=== PATIENT | female | born 1985 | race Two or more races ===

== ENCOUNTER 2016-07-25 13:31 | Emergency (ER) | payer MEDICAID ==
--- NOTE | 2016-07-25 13:45 | ED Physician Chart ---
History of Present Illness - General Stated Complaint: HEADACHE SINCE YESTERDAY Time Seen by Provider: 07/25/16 13:46 Source: Patient, EMS - History of Present Illness Initial Comments: HPI: This 30 year old female had gradual onset of a headache, isolated to the area of the forehead. She rates the severity of the headache as a 3/10 and the character as sharp. The pain come and go and the patient can identify any worsening or reliving factors. She says the headache kept her from sleeping last night. She was at her daughters school this afternoon with her head restinf on her folded arms as she was sitting on a bench . A teach was unable to awaken her and 911 was called. The patient was unresponsive upon arrival of EMS. She regained consciousness during the trip to the hospital. She denied any recent head trauma. She has not photophobia. NO recent fever or chills. NO diaphoresis. NO blurred vision or double vision. NO neck pain or stiff neck. NO nausea or vomiting. NO history of alcohol or drug ingestion. The patient DENIES HAVING EVER HAD A SIMILAR HEADACHE. NO family history of migraine headaches or ceberal bleeds. Allergies/Adverse Reactions: Allergies No Known Allergies Allergy (Verified 07/25/16 13:44) Home Medications: Ambulatory Orders Hydrocodone/APAP 5mg/325mg [Curlew 5mg/325mg] 1 tab PO Q6H PRN #0 tab 07/25/16 Ibuprofen 600 mg PO Q6HR PRN #0 tablet 07/25/16 Past History - Past Medical History Surgical History: No surgical history (Non-smoker and denied use of alcohol. Denies illicit drug use.) Family Medical History - Family Member Mother History Unknown: Yes Ethnicity: (No family history of migraine headaches or cerebral aneurysms. No history of intracranial bleeds.) Review of Systems - Review of Systems Eyes (ROS): Reports: No Symptoms Reported ( Has nasal congestion.) Respiratory: Reports: No Symptoms Reported Cardiology: Reports: No symptoms reported Gastrointestinal/Abdominal: Reports: Abdominal pain ( The patient has mild pain in the epigastric region. The pain does not radiate to the back.), Other Genitourinary: Reports: No Symptoms Reported Musculoskeletal: Reports: No Symptoms Reported Skin: Reports: No Symptoms Reported Neurological: Reports: No Symptoms Reported, See HPI All Other Systems: Reviewed and Negative Physical Exam - Physical Exam General Appearance: WD/WN, mild distress Eyes, Ears, Nose, Throat Exam: PERRL/EOMI, normal ENT inspection, TMs normal, pharynx normal, other ( Funds scopic examination showed no retinal hemorrhages or exudates and sharp disk margins bilaterally.) Neck: non-tender, full range of motion, supple, normal inspection, trachea midline ( The neck is supple and without lymphadenopathy. No C-spine tenderness. ) Cardiovascular/Chest: normal peripheral pulses, regular rate, rhythm, no edema, no gallop, no JVD, no murmur Respiratory: chest non-tender, lungs clear, normal breath sounds, no respiratory distress, no accessory muscle use Gastrointestinal/Abdominal: Normal bowel sounds, Soft, No organomegaly, No pulsatile mass, Other ( There was mild epigastric tenderness to palpation with no associated rebound regarding.) Back Exam: normal inspection, no CVA tenderness, no vertebral tenderness Extremity: normal range of motion, non-tender, normal inspection, no pedal edema , no calf tenderness, normal capillary refill Mental Status: alert, oriented x 3, depressed 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 No facial asymmetry. No EOM Palsy) Coordination/Gait: normal gait, negative Romberg's sign ( no pronator drift. Fingernails testing and [place] testing were both normal. normal alternating hand movements. Gait is steady. Negative hombre test.) Motor/Sensory: no motor deficit Course - Course Orders, Labs, Meds: Nathan did write it down on here let me look: this 30-year-old female presents with a somewhat unusual history of headache in the frontal region. It started gradually at about 5 PM the evening before. The symptoms wax and wane and there are no precipitating or relieving factors. The patient never had a similar headache. On physical examination the neurologic exam was completely normal. Due to the patient's history of no prior similar headaches a CT scan was obtained and was negative for any evidence of subarachnoid hemorrhage. Patient was discharged with a prescription for Curlew 5/325, number 10 to be taken one every six hours as needed for headache. She was given the usual precautions regarding mixing it with alcohol and abstaining from driving in activities requiring alertness for at least six hours after taking it. Patient was discharged with instructions to follow up with her primary care physician. She does not know the primary care physicians name but states that she does have one. She was further buys to return to the emergency department should she have any new onset of neurologic symptoms. MDM: DDX (ACUTE HEADACHE) NOT Subarachnoid hemorrhage based on gradual onset, supple neck, and negative CT head. NOT Traumatic IC Bleed based on patient's neg history for trauma and negative CT head. NOT meningitis based on no fever and supple neck and no rashes or petechiae. NOT temporal arteritis based on patients age. NOT glaucoma based on history and exam. NOT Vertebral artery dissection based on the patient's history and physical examination. NOT Frontal sinusitis based on neg CT scan and no tenderness over frontal sinuses. Departure - Departure Disposition: PT DISCHARGED HOME Condition: Improved Instructions: Tension Headache Referrals: Addie Alanis [Other] Home Medications: Ambulatory Orders Hydrocodone/APAP 5mg/325mg [Curlew 5mg/325mg] 1 tab PO Q6H PRN #0 tab 07/25/16 Ibuprofen 600 mg PO Q6HR PRN #0 tablet 07/25/16 Prescriptions: Ibuprofen 600 mg PO Q6HR PRN #0 tablet PRN Reason: Pain (Mild) Hydrocodone/APAP 5mg/325mg [[place] 5mg/325mg] 1 tab PO Q6H PRN #0 tab PRN Reason: Pain (Severe) ED Discharge Plan - Patient Disposition Admit/Discharge/Transfer: PT DISCHARGED HOME Condition at Disposition: Improved Prescriptions: Ibuprofen 600 mg PO Q6HR PRN #0 tablet PRN Reason: Pain (Mild) Hydrocodone/APAP 5mg/325mg [[place]lew 5mg/325mg] 1 tab PO Q6H PRN #0 tab PRN Reason: Pain (Severe) Instructions: Tension Headache Accepting Physician: Addie Alanis [Other]
[2016-07-25] MEDS ORDERED: Hydrocodone/APAP 5mg/325mg Tab PO ONE (14:30)
[2016-07-25] MEDS ORDERED: Hydrocodone/APAP 5mg/325mg Tab ONE (14:32)
[2016-07-25 14:42] LABS: % BASOPHILS 1.8 % (0.0-2.0); % EOSINOPHILS 1.5 % (0.0-5.0); % MONOCYTES 4.3 % (2.0-10.0); % NEUTROPHILS 69.4 % (40.0-80.0); HEMATOCRIT 39.4 % (35.0-45.0); HEMOGLOBIN 13.6 gm/dL (11.7-15.5); MEAN CELL VOLUME 88.2 fl (81-100); MEAN CORPUSCULAR HEMOGLOBIN 30.5 pg (27.0-31.0); MEAN CORPUSCULAR HGB CONC 34.6 pg (28.0-36.0); MEAN PLATELET VOLUME 8.2 fl; NEUTROPHILE ABSOLUTE 5.8 Th/cmm (1.8-8.0); PLATELET COUNT 247 Th/cmm (150-400); RED BLOOD COUNT 4.47 Mil/cmm (3.80-5.10); WHITE BLOOD COUNT 8.4 Th/cmm (4.8-10.8)
[2016-07-25 14:59] LABS: ANION GAP 12.8 (7.0-16.0); BUN - UREA NITROGEN 10 mg/dL (7-25); BUN/CREATININE RATIO 16.7; CALCIUM SERUM 9.7 mg/dL (8.6-10.3); CARBON DIOXIDE 23.1 mEq/L (21.0-31.0); CHLORIDE 104 mEq/L (98-107); CREATININE - SERUM 0.6 mg/dL (0.6-1.2); GLUCOSE 94 mg/dL (70-105); POTASSIUM SERUM 3.9 mEq/L (3.5-5.1); SODIUM SERUM 136 mEq/L (136-145)
[2016-07-25 15:13] LABS: URINE BILIRUBIN NEGATIVE (NEGATIVE); URINE BLOOD SMALL (NEGATIVE); URINE COLOR YELLOW; URINE GLUCOSE (UA) NEGATIVE (NEGATIVE); URINE KETONE NEGATIVE (NEGATIVE)
[2016-07-25 15:14] LABS: URINE PROTEIN NEGATIVE (NEGATIVE); URINE UROBILINOGEN 0.2 E.U./dL (0.2 - 1.0)
[2016-07-25 15:15] LABS: URINE BACTERIA NONE SEEN /hpf (NONE SEEN); URINE EPITHELIAL CELLS FEW /lpf (FEW)
--- NOTE | 2016-07-25 16:02 | Diagnostic Imaging Report ---
Head CT without intravenous contrast Indication: Headache and loss of consciousness Comparison: None Technique: Axial images were obtained from the vertex to the skull base without IV contrast. Coronal reconstructions were made. Total DLP: 507, CTDI32 FINDINGS: Images of the brain obtained without contrast demonstrate no acute hemorrhage. No mass lesions identified. The ventricles and basal cisterns are patent. The culp-white matter differentiation is preserved. There is no mass effect or midline shift. No skull fractures identified. No soft tissue swelling. The paranasal sinuses are clear. IMPRESSION: No acute intracranial abnormality.
== END 2016-07-25 16:50 | disposition home or self-care (01) ==
LOC: ER 13:31
DX: G44.209 Tension-type headache, unspecified, not intractable (principal)
CPT/HCPCS: 36415-UA; 70450-TC; 80048-TC; 81001-TC; 81025-TC; 82948-90; 85025-TC

== ENCOUNTER 2016-09-29 10:16 | Emergency (ER) | payer MEDICAID ==
[2016-09-29] MEDS ORDERED: Naloxone 0.4 mg/mL 1mL Vial IV ONE (10:22)
[2016-09-29] MEDS ORDERED: Naloxone 0.4 mg/mL 1mL Vial ONE (10:24)
--- NOTE | 2016-09-29 10:52 | ED Physician Chart ---
Chief Complaint/HPI - Patient Information Date Seen:: 09/29/16 Time Seen:: 10:40 Chief Complaint:: ALOC History of Present Illness:: THIS IS A 30 YO GER[place] FEMALE BIB HER FAMILY UNRESPONSIVE THIS AM AND HAS BEEN HERE [facility]IVE[place] BEFORE BIB THE EMS BACK IN JUL 2016. SHE WAS UNABLE TO GIVE A HISTORY OR REVIEW OF SYSTEMS. HER IS WITH HER BUT SPEAKS ONLY GERMAN. AFTER SHE WAS GIVEN NARCAN IV PUSH SHE WAS ABLE TO GIVE A NEGATIVE HISTORY OF SEIZURES, HEART PROBLEMS AND DIABETES. Allergies:: Allergies Allergy/AdvReac Type Severity Reaction Status Date / Time No Known Allergies Allergy Verified 07/25/16 13:44 Vitals:: Vital Signs - 8 hr 09/29/16 10:38 Temp 99.4 F HR 91 RR 17 BP 137/89 O2 Sat % 99 Historian:: Patient, Family Member, Medical Records Review:: Nurse's Note Reviewed Review of Systems - Review of Systems General/Constitutional: No fever, No chills, No weight loss, No weakness, No diaphoresis, No edema, No loss of appetite Skin: No skin lesions, No rash, No bruising Head: No headache, No light-headedness Eyes: No loss of vision, No pain, No diplopia ENT: No earache, No nasal drainage, No sore throat, No tinnitus Neck: No neck pain, No swelling, No thyromegaly, No stiffness, No mass noted Cardio Vascular: No chest pain, No palpitations, No PND, No orthopnea, No edema Pulmonary: No SOB, No cough, No sputum, No wheezing GI: No nausea, No vomiting, No diarrhea, No pain, No melena, No hematochezia, No constipation, No hematemesis G/U: No dysuria, No frequency, No hematuria Musculoskeletal: No bone or joint pain, No back pain, No muscle pain Endocrine: No polyuria, No polydipsia Psychiatric: No prior psych history, No depression, No anxiety, No suicidal ideation Hematopoietic: No bruising, No lymphadenopathy Allergic/Immuno: No urticaria, No angioedema Neurological: Syncope, No focal symptoms, No weakness, No paresthesia, No headache, No seizure, No dizziness, No confusion, No vertigo Past Medical History - Past Medical History Obtainable: Yes Past Medical History: Other (ALOC TIMES ONE) Family History: None Social History: Non Smoker, No Alcohol, No Drug Use, Surgical History: None Psychiatricy History: None Medication: Reviewed Family Medical History - Family Member Mother History Unknown: Yes Ethnicity: (No family history of migraine headaches or cerebral aneurysms. No history of intracranial bleeds.) Physical Exam - Physical Examination General/Constitutional: Awake, Well-developed, well-nourished, Alert, No distress, GCS 15, Non-toxic appearing, Ambulatory Other Gen/Cons comments:: ALTERED MENTAL STATUS AND NOT RESPONDING TO VERBAL STIMULATION. Head: Atraumatic Eyes: Lids, conjuctiva normal, PERRL, EOMI Skin: Nl inspection, No rash, No skin lesions, No ecchymosis, Well hydrated, No lymphadenopathy ENMT: External ears, nose nl, Nasal exam nl, Lips, teeth, gums nl Neck: Nontender, Full ROM w/o pain, No JVD, No nuchal rigidity, No bruit, No mass, No stridor Respiratory: Nl effort/Exclusion, Clear to Auscultation, No Wheeze/Rhonchi/Rales Cardio Vascular: RRR, No murmur, gallop, rubs, NL S1 S2 GI: No tenderness/rebounding/guarding, No organomegaly, No hernia, Normal BS's, Nondistended, No mass/bruits, No McBurney tenderness : No CVA tenderness Extremities: No tenderness or effusion, Full ROM, normal strength in all extremities, No edema, Normal digits & nails Neuro/Psych: Alert/oriented, DTR's symmetric, Normal sensory exam, Normal motor strength, Judgement/insight normal, Mood normal, Normal gait, No focal deficits Misc: normal gait, Normal back, No paraspinal tenderness Labs/Radiology/EKG Results - Lab Results Results: Abnormal Lab Results 09/29/16 09/29/16 09/29/16 10:50 10:50 10:50 WBC 7.9 RBC 4.55 Hgb 13.7 Hct 40.9 MCV 89.9 MCH 30.1 MCHC Differential 33.5 RDW 12.5 Plt Count 228 MPV 8.5 Neutrophils % 57.1 Lymphocytes % 33.0 Monocytes % 7.5 Eosinophils % 1.6 Basophils % 0.8 PT 9.9 INR 0.95 PTT (Actin FS) 24.3 L Sodium Potassium Chloride Carbon Dioxide Anion Gap BUN Creatinine Est GFR ( Amer) Est GFR (Non-Af Amer) BUN/Creatinine Ratio Glucose Calcium Total Bilirubin AST ALT Alkaline Phosphatase Troponin I Total Protein Albumin Globulin Albumin/Globulin Ratio Triglycerides 111 Cholesterol 181 LDL Cholesterol Direct 122 HDL Cholesterol 54 TSH Serum , Qual Urine Source Urine Color Urine Clarity Urine pH Ur Specific [place] Urine Protein Urine Glucose (UA) Urine Ketones Urine Blood Urine Nitrate Urine Bilirubin Urine Urobilinogen Ur Leukocyte Esterase Urine RBC Urine WBC Ur Epithelial Cells Urine Bacteria Urine Opiates Screen Urine Methadone Screen Ur Barbiturates Screen Ur Tricyclics Screen Ur Phencyclidine Scrn Amphetamines Screen U Methamphetamines Scrn U Benzodiazepines Scrn U Cocaine Metab Screen U Cannabinoids Screen 09/29/16 09/29/16 09/29/16 10:50 10:50 10:50 WBC RBC Hgb Hct MCV MCH MCHC Differential RDW Plt Count MPV Neutrophils % Lymphocytes % Monocytes % Eosinophils % Basophils % PT INR PTT (Actin FS) Sodium 137 Potassium 3.4 L Chloride 109 H Carbon Dioxide 19.8 L Anion Gap 11.6 BUN 8 Creatinine 0.6 Est GFR ( Amer) > 60.0 Est GFR (Non-Af Amer) > 60.0 BUN/Creatinine Ratio 13.3 Glucose 117 H Calcium 9.6 Total Bilirubin 0.4 AST 20 ALT 27 Alkaline Phosphatase 65 Troponin I < 0.01 L Total Protein 8.0 Albumin 4.6 Globulin 3.4 Albumin/Globulin Ratio 1.4 Triglycerides Cholesterol LDL Cholesterol Direct HDL Cholesterol TSH 0.79 Serum , Qual Urine Source Urine Color Urine Clarity Urine pH Ur Specific [place] Urine Protein Urine Glucose (UA) Urine Ketones Urine Blood Urine Nitrate Urine Bilirubin Urine Urobilinogen Ur Leukocyte Esterase Urine RBC Urine WBC Ur Epithelial Cells Urine Bacteria Urine Opiates Screen Urine Methadone Screen Ur Barbiturates Screen Ur Tricyclics Screen Ur Phencyclidine Scrn Amphetamines Screen U Methamphetamines Scrn U Benzodiazepines Scrn U Cocaine Metab Screen U Cannabinoids Screen 09/29/16 09/29/16 09/29/16 10:50 12:20 12:20 WBC RBC Hgb Hct MCV MCH MCHC Differential RDW Plt Count MPV Neutrophils % Lymphocytes % Monocytes % Eosinophils % Basophils % PT INR PTT (Actin FS) Sodium Potassium Chloride Carbon Dioxide Anion Gap BUN Creatinine Est GFR ( Amer) Est GFR (Non-Af Amer) BUN/Creatinine Ratio Glucose Calcium Total Bilirubin AST ALT Alkaline Phosphatase Troponin I Total Protein Albumin Globulin Albumin/Globulin Ratio Triglycerides Cholesterol LDL Cholesterol Direct HDL Cholesterol TSH Serum , Qual NEGATIVE Urine Source CLEAN C Urine Color YELLOW Urine Clarity SL. CLOUDY Urine pH 6.0 Ur Specific [place] 1.025 Urine Protein NEGATIVE Urine Glucose (UA) NEGATIVE Urine Ketones NEGATIVE Urine Blood MODERATE H Urine Nitrate NEGATIVE Urine Bilirubin NEGATIVE Urine Urobilinogen 0.2 Ur Leukocyte Esterase TRACE H Urine RBC 2-5 Urine WBC 6-10 H Ur Epithelial Cells MODERATE Urine Bacteria FEW Urine Opiates Screen NEGATIVE Urine Methadone Screen NEGATIVE Ur Barbiturates Screen NEGATIVE Ur Tricyclics Screen NEGATIVE Ur Phencyclidine Scrn NEGATIVE Amphetamines Screen NEGATIVE U Methamphetamines Scrn NEGATIVE U Benzodiazepines Scrn NEGATIVE U Cocaine Metab Screen NEGATIVE U Cannabinoids Screen NEGATIVE - Radiology Results Results: CT SCAN OF THE BRAIN = NAD - EKG Interpretations EKG Time:: 10:34 Rate & Rhythm: RATE=81 NSR [place]: RIGHT AXIS Assessment - Assessment General Assessment: THIS PATIENT RESPONDED TO THE NARCAN AND BECAME ALERT AND ORIENTED TIMES THREE. THE PATIENT'S HEADACHE RETURNED WITH A GOOD RESPONSE TO ATIVAN 1 MG IV PUSH THE PATIENT'S LABS WERE ALL NORMAL EXCEPT FOR A URINARY TRACT INFECTION FOR WHICH SHE WAS TREATED. ED Septic Shock - . Is Septic Shock (SBP<90, OR Lactate>4 mmol\L) present?: No - <6hrs of presentation: Vital Signs: Vital Signs - 8 hr 09/29/16 10:38 Temp 99.4 F HR 91 RR 17 BP 137/89 O2 Sat % 99 Reassessment (Disposition) - Reassessment Reassessment Condition:: Improved - Diagnosis Diagnosis:: URINARY TRACT INFECTION - Aftercare/Follow up Instructions Aftercare/Follow-Up Instructions:: Counseled pt regarding lab results/diagnosis & need follow up, Refer to Discharge Instructions, Counseled pt & family regarding lab results/diagnosis & need follow up - Patient Disposition Discharge/Transfer:: Home Condition at Disposition:: Improved ED Discharge Plan - Patient Disposition Admit/Discharge/Transfer: PT DISCHARGED HOME Condition at Disposition: Improved
[2016-09-29 11:00] LABS: % BASOPHILS 0.8 % (0.0-2.0); % EOSINOPHILS 1.6 % (0.0-5.0); % MONOCYTES 7.5 % (2.0-10.0); % NEUTROPHILS 57.1 % (40.0-80.0); HEMATOCRIT 40.9 % (35.0-45.0); HEMOGLOBIN 13.7 gm/dL (11.7-15.5); MEAN CELL VOLUME 89.9 fl (81-100); MEAN CORPUSCULAR HEMOGLOBIN 30.1 pg (27.0-31.0); MEAN CORPUSCULAR HGB CONC 33.5 pg (28.0-36.0); MEAN PLATELET VOLUME 8.5 fl; NEUTROPHILE ABSOLUTE 4.5 Th/cmm (1.8-8.0); PLATELET COUNT 228 Th/cmm (150-400); RED BLOOD COUNT 4.55 Mil/cmm (3.80-5.10); RED CELL DISTRIBUTION WIDTH 12.5 % (11.5-20.0); WHITE BLOOD COUNT 7.9 Th/cmm (4.8-10.8)
[2016-09-29 11:17] LABS: INR 0.95 (0.5-1.4); PROTHROMBIN TIME (TEST) 9.9 SECONDS (9.5-11.5)
[2016-09-29 11:24] LABS: ALB/GLOB RATIO 1.4 (1.0-1.8); ALKALINE PHOSPHATASE 65 U/L (34-104); ANION GAP 11.6 (7.0-16.0); BILIRUBIN,TOTAL 0.4 mg/dL (0.3-1.0); BUN - UREA NITROGEN 8 mg/dL (7-25); BUN/CREATININE RATIO 13.3; CALCIUM SERUM 9.6 mg/dL (8.6-10.3); CARBON DIOXIDE 19.8 mEq/L (21.0-31.0); CHLORIDE 109 mEq/L (98-107); CREATININE - SERUM 0.6 mg/dL (0.6-1.2); GLUCOSE 117 mg/dL (70-105); POTASSIUM SERUM 3.4 mEq/L (3.5-5.1); SGOT 20 U/L (13-39); SGPT/ALT 27 U/L (7-52); SODIUM SERUM 137 mEq/L (136-145)
[2016-09-29 11:25] LABS: CHOLESTEROL 181 mg/dL (<200); TRIGLYCERIDES 111 mg/dL (<150)
[2016-09-29] MEDS ORDERED: Potassium Chloride 20 mEq ER Tab PO ONE ×2 (11:51→11:53)
--- NOTE | 2016-09-29 12:20 | Diagnostic Imaging Report ---
Portable chest x-ray History: Shortness of breath Allowing for portable technique the heart size is normal. No focal pulmonary parenchymal processes. No hilar or mediastinal abnormalities. Impression: No acute abnormalities.
--- NOTE | 2016-09-29 12:20 | Diagnostic Imaging Report ---
CT scan of the brain without contrast History: Syncope Total DLP equals 524 CTDI equals 34.3 Axial sections were obtained from the base of the skull to the vertex. There is a normal ventricular system size. No focal parenchymal lesions are seen. No evidence of any mass effect or shift of midline structures. No extra-axial masses or abnormal fluid collections. Impression: Negative examination
[2016-09-29 12:31] LABS: URINE BILIRUBIN NEGATIVE (NEGATIVE); URINE BLOOD MODERATE (NEGATIVE); URINE COLOR YELLOW; URINE GLUCOSE (UA) NEGATIVE (NEGATIVE); URINE KETONE NEGATIVE (NEGATIVE); URINE PROTEIN NEGATIVE (NEGATIVE); URINE UROBILINOGEN 0.2 E.U./dL (0.2 - 1.0)
[2016-09-29 12:34] LABS: URINE BACTERIA FEW /hpf (NONE SEEN); URINE EPITHELIAL CELLS MODERATE /lpf (FEW)
[2016-09-29] MEDS ORDERED: cefTRIAXone 1 GM in Sodium Chloride 0.9% 50 ML IV ONE (12:41)
[2016-09-29 12:43] LABS: AMPHETAMINE URINE NEGATIVE (NEGATIVE); BARBITURATES URINE NEGATIVE (NEGATIVE); METHADONE URINE NEGATIVE (NEGATIVE)
== END 2016-09-29 13:07 | disposition home or self-care (01) ==
LOC: ER 10:16
DX: N39.0 Urinary tract infection, site not specified (principal)
CPT/HCPCS: 36415-UA; 70450-TC; 71010-TC; 80053-TC; 80061-TC; 80307; 81001-TC; 81025-TC; 82948-90; 84443-TC; 84484-TC; 85025-TC; 85610-TC; 85730-TC; 86592-TC; 93005; 96375; J0696; J2060; X6614